=== PATIENT | female | born 1960 | race Caucasian/White ===

== ENCOUNTER → 2017-08-02 | Day surgery (SDC) | payer OTHER ==
[2017-07-27 09:27] VITALS: BMI 25.8
--- NOTE | 2017-08-02 15:40 | P.PCN ---
Preoperative Diagnosis: Diagnosis Right phrenic nerve paresis Past cryoablation about 3 months back 24 hours after cryoablation there was no movement of the diaphragm with deep breaths Patient brought in for sniff test and fluoroscopy of the diaphragms 1. There is still a difference in the diaphragmatic levels With deep inspiration and expiration there is mild movement of the right diaphragm which was not present before However in comparison to the left diaphragm there is residual right phrenic nerve paresis Impression Partial recovery of the phrenic nerve on the right side Plan Hold off on right-sided pulmonary vein isolation for the next 6 months and allow for complete recovery of the phrenic nerve Continue propafenone and Savaysa and metoprolol Follow-up in 6 months
== END | disposition home or self-care (01) ==
LOC: CATHEP 14:15
PROVIDERS: ATTEND Internal Medicine Clinical Cardiac Electrophysiology
DX: J98.6 Disorders of diaphragm (principal); I10 Essential (primary) hypertension; I48.0 Paroxysmal atrial fibrillation; Z79.01 Long term (current) use of anticoagulants; Z87.891 Personal history of nicotine dependence; Z79.899 Other long term (current) drug therapy
CPT/HCPCS: 76000

== ENCOUNTER → 2018-02-21 | Outpatient (CLI) | payer OTHER ==
--- NOTE | 2018-02-21 13:35 | FL ---
EXAMINATION TYPE: FL sniff test without CXR DATE OF EXAM: 02/21/2018 COMPARISON: Radiograph 04/23/2014 HISTORY: 57-year-old female chronic nerve paresis TECHNIQUE: Real-time fluoroscopy. Total fluoroscopy time: 56 seconds. Total images: 6. FINDINGS: There is slight asymmetric right hemidiaphragmatic elevation. During both normal, quite breathing as well as deep breathing, there is slightly decreased excursion of the right hemidiaphragm towards the end of inspiration. During sniffing maneuver, there is delayed and decreased excursion of the right hemidiaphragm though no paradoxical movement is seen. IMPRESSION: Partial right hemidiaphragmatic paresis with sluggish movement and decreased excursion.
== END | disposition home or self-care (01) ==
LOC: RADFLMAIN 09:33
PROVIDERS: ATTEND Internal Medicine Clinical Cardiac Electrophysiology
DX: J98.6 Disorders of diaphragm (principal)
CPT/HCPCS: 76000

== ENCOUNTER → 2018-09-08 | Outpatient (CLI) | payer OTHER ==
--- NOTE | 2018-09-08 09:17 | FL ---
EXAMINATION TYPE: FL sniff test without CXR DATE OF EXAM: 09/08/2018 COMPARISON: Prior fluoroscopic sniff test February 21, 2018. Prior chest x-ray April 23, 2014. HISTORY: History of atrial fibrillation with ablation in April 2017 with prior abnormal stiff test suggesting partial right diaphragmatic paralysis in January 2018 TECHNIQUE: Fluoroscopic sniff test. A total of 31 seconds of fluoroscopic time was utilized during pr ocedure. 14 spot images are saved to PACS. FINDINGS: During inspiration and expiration there is satisfactory downward movement of both right and left hemidiaphragms on inspiration and cranial movement of both hemidiaphragms on expiration. No par adoxical movement or paralysis is seen. Patient does have limited inspiratory volume and thus limited expiratory volume. IMPRESSION: As Above. No convincing evidence of hemidiaphragm paralysis on this study.
== END | disposition home or self-care (01) ==
LOC: RADFLWHC 08:22
PROVIDERS: ATTEND Internal Medicine Clinical Cardiac Electrophysiology
DX: I48.0 Paroxysmal atrial fibrillation (principal)
CPT/HCPCS: 76000

== ENCOUNTER → 2018-11-01 | Outpatient (CLI) | payer OTHER ==
[2018-11-01 10:31] LABS: HCT 43.9 % (34.0-46.0); HGB 13.8 gm/dL (11.4-16.0); MCH 32.3 pg (25.0-35.0); MCHC 31.4 g/dL (31.0-37.0); MCV 102.9 fL (80.0-100.0); Macrocytosis Slight; Mean Platelet Volume 6.9; Platelet Count 661 k/uL (150-450); RBC 4.27 m/uL (3.80-5.40); RDW 12.5 % (11.5-15.5); WBC 6.9 k/uL (3.8-10.6)
[2018-11-01 11:32] LABS: Potassium 6.3 mmol/L (3.5-5.1)
== END | disposition home or self-care (01) ==
LOC: LABPAT 09:29
PROVIDERS: ATTEND Internal Medicine Clinical Cardiac Electrophysiology
DX: Z01.812 Encounter for preprocedural laboratory examination (principal); I48.0 Paroxysmal atrial fibrillation
CPT/HCPCS: 36415; 80051; 82565; 82947; 84520; 85027

== ENCOUNTER → 2018-11-03 | Outpatient (CLI) | payer OTHER | END | disposition home or self-care (01) | LOC: LABWHC1 09:43 | PROVIDERS: ATTEND Nurse Practitioner Adult Health | DX: E87.6 Hypokalemia (principal) | CPT/HCPCS: 36415; 84132 ==

== ENCOUNTER 2018-11-14 06:49 | Day surgery (SDC) | payer OTHER ==
[2018-11-09 10:26] VITALS: BMI 27.4
[~2018-11-14 06:49] MED LIST: DEXAMETHASONE SOD PHOSPHATE 10 MG/ML 1 ML VIAL IV ONE; MIDAZOLAM 2 MG/2 ML VIAL IV PRN; ONDANSETRON 4 MG/2 ML VIAL IVP ONE; fentaNYL (PF) 50 MCG/ML 2 ML AMP IV PRN
[2018-11-14] MEDS ORDERED: NEOSTIGMINE 1 MG/ML 10 ML VIAL ONE (09:02)
[2018-11-14] MEDS ORDERED: fentaNYL (PF) 50 MCG/ML 2 ML AMP ONE (09:02)
[2018-11-14] MEDS ORDERED: diphenhydrAMINE 50 MG/ML 1 ML VIAL ONE (09:02)
[2018-11-14] MEDS ORDERED: SODIUM CHLORIDE 0.9% 1,000 ML IV ONE (09:02)
[2018-11-14] MEDS ORDERED: SUCCINYLCHOLINE CHLORIDE 100 MG/5 ML SYR IV ONE (09:02)
[2018-11-14] MEDS ORDERED: MIDAZOLAM 2 MG/2 ML VIAL ONE (09:02)
[2018-11-14] MEDS ORDERED: FUROSEMIDE 10 MG/ML 2 ML VIAL ONE (09:02)
[2018-11-14] MEDS ORDERED: GLYCOPYRROLATE 0.2 MG/ML 2 ML VIAL ONE (09:02)
[2018-11-14] MEDS ORDERED: PROTAMINE SULFATE 10 MG/ML 5 ML VIAL IV ONE (09:02)
[2018-11-14] MEDS ORDERED: ROCURONIUM BROMIDE 10 MG/ML 10 ML VIAL IV ONE (09:02)
[2018-11-14] MEDS ORDERED: PROPOFOL 10 MG/ML 20 ML VIAL IV ONE (09:02)
[2018-11-14] MEDS ORDERED: HEPARIN SOD,PORK IN 0.45% NACL 25,000 UNIT in 0.45% NACL 1 250ML.BAG IV ONE (09:55)
[2018-11-14] MEDS ORDERED: LIDOCAINE 1% INJ 10MG/ML (20 ML MDV) SQ ONE (09:56)
[2018-11-14] MEDS ORDERED: LACTATED RINGERS 1,000 ML IV ONE ×2 (10:05→15:04)
[2018-11-14] MEDS ORDERED: HEPARIN SODIUM (1,000 UNIT/ML) 1,000 UNIT in SODIUM CHLORIDE 0.9% 1,000 ML IRRIGATION ONE ×2 (10:41→14:40)
[2018-11-14] MEDS ORDERED: HYDROcodone/APAP 5-325MG 1 EACH TAB PO PRN (15:19)
[2018-11-14] MEDS ORDERED: ACETAMINOPHEN IV (For NPO) 1,000 MG in EMPTY BAG 1 BAG IVPB ONE (15:19)
--- NOTE | 2018-11-14 15:32 | P.PRLE ---
RE: Damaris Cunha Dear Bao Damaris underwent successful A. fib ablation with pulmonary vein isolation. Her right phrenic nerve was intact at the end of the procedure She also underwent a catheter based Maze procedure and she organized internally defibrillated atrial flutter and then underwent successful atrial flutter ablation to sinus rhythm She will continue ELIQUIS at this time and follow with you and Dr. Pena as before Thank you for entrusting me with the care of the patient Warm regards Sincerely Bernardo Fierro
--- NOTE | 2018-11-14 16:26 | PCN ---
PROCEDURE NOTE Damaris Cunha is a 58-year-old female with very frequent paroxysms of atrial fibrillation, who has failed propafenone as well as flecainide has symptomatic atrial fibrillation with RVR and shortness of breath. She has undergone a cryoablation in the last year, but she had right phrenic nerve injury and therefore the right-sided pulmonary veins were not ablated completely. She was brought back for an EP study and ablation using RF ablation. DESCRIPTION OF PROCEDURE: The patient is brought to the EP lab in a fasting state. Written informed consent was obtained prior to the procedure. The patient underwent general anesthesia, but without any paralytics initially. Once the course of the right phrenic nerve was carefully documented and tagged, paralytics were used. The right and left groins were prepped and draped as per protocol. 1% lidocaine was used for local anesthesia. Venous sheaths were placed in the right and left femoral veins and via these diagnostic mapping ablation catheters and intracardiac echo catheters were placed. The patient was in atrial fibrillation which is a relatively organized at the start of the study. Initially the right and left transseptal catheterization was performed. Intracardiac echocardiography was performed. There was no pericardial effusion. RV and LV size and function were normal. Left atrial appendage did not show any intracardiac mass or thrombus. Patient was on Eliquis. Successful transseptal catheterization was performed. RA pressure 12/7/10 mmHg, LA pressure 22/15/11 mmHg. This was performed under intracardiac echo guidance. Once a mapping catheter was placed in the left atrium, 3D electroanatomic mapping was performed. First a voltage map was made for the right and left pulmonary veins. The left-sided pulmonary veins were completely isolated. However, the right-sided veins were active. The anatomy of the right-sided veins was quite complex. There was a large right superior pulmonary vein, a small right middle pulmonary vein and complex large right inferior pulmonary vein, which immediately branched into 2 large branches, 1 heading anteriorly. The other heading posteriorly. First the phrenic nerve was stimulated and diaphragmatic contractions were documented. Thereafter, pacing was performed in the right pulmonary venous antrum anteriorly to document absence of any phrenic nerve stimulation in the antrum. These points were tagged and a wide tazlina antral isolation was performed outside this line towards the atrium. The wide tazlina antral isolation was completed and voltage mapping was once again performed. The vein was completely isolated (entrance block). However, the patient remained in the organized atrial fibrillation. Next linear ablation of the left atrial roof slightly anterior was performed and a complete anatomic line of block was made from the left superior pulmonary vein to the right superior pulmonary vein. This resulted in organization of atrial fibrillation with an eccentric activation in the coronary sinus poles, from the distal coronary sinus poles laterally to the seconds to the proximal coronary sinus poles more separately. Esophageal deflection had to be performed to complete the right pulmonary venous antral line. Barium was used and the esophagus was deflected. Temperature monitoring was performed in the esophagus. Thereafter, the mitral anulus was tagged and RF line of block was made from the left superior pulmonary vein to the mitral anulus. When this line was completed, there was an abrupt termination of the mitral anulus reentry and it converted to a rhythm that was consistent with typical right-sided atrial flutter. This mitral isthmus line was anatomically completed. Following that, the catheter was withdrawn into the right atrium. Heparin was stopped and mapping was performed in the cava tricuspid isthmus. 3D electro anatomic mapping of the cava tricuspid isthmus was performed and RF ablation was performed. The tachycardia terminated. A complete line of block was made. Following that with differential pacing, bidirectional block was demonstrated. The isthmus conduction time was greater than 163 milliseconds in either direction. Following that, in sinus rhythm, diagnostic EP study was performed. The MA interval is 176 milliseconds, QRS 86 milliseconds, QT 309 milliseconds. The baseline AH interval was 93 milliseconds, HV interval was 50 milliseconds. Patient was on flecainide 100 mg twice daily. Sinus node recovery times at 600, and 500 milliseconds were 1239 and 1239 millisecond respectively. Corresponding corrected sinus node recovery times were within normal limits. AV node Wenckebach block was 410 milliseconds. No delta waves. No slow pathway conduction. VA Wenckebach block greater than 600 milliseconds. Radiographic evaluation of the esophagus was performed after completion of the EP procedure. There was no evidence for esophageal ulceration or perforation. The barium was then carefully suctioned out of the esophagus. 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 The posterior pharynx was then cleaned and well suctioned to remove all the barium to avoid aspiration. Venous sheaths were removed. The patient was extubated. Heparin was reversed. The patient tolerated the procedure well without any acute complications. This was a long procedure that required multiple mapping procedures in the left atrium, 3D mapping. This was a stepwise ablation, first to the pulmonary veins, then linear ablation of left atrial roof, then the mitral isthmus and then subsequently right atrial 3D electro anatomic mapping and termination of typical atrial flutter on the right side. This was a long procedure lasting for over 4 hours. The patient tolerated the procedure well without any acute complications. PLAN: Continue Eliquis and continue flecainide for now and reduce the dose of flecainide in about 6 weeks and hopefully by 3 months, we will stop flecainide completely. [id number] / IJN: [id number] /
[2018-11-14] MEDS: LACTATED RINGERS 1,000 ML IV SCH (17:27)
[2018-11-14] MEDS ORDERED: ONDANSETRON 4 MG/2 ML VIAL IVP PRN (17:57)
[2018-11-14] MEDS: FLECAINIDE 50 MG TAB PO SCH (18:27)
[2018-11-14] MEDS ORDERED: FLECAINIDE 50 MG TAB PO STA (20:09)
[2018-11-14] MEDS ORDERED: METOPROLOL SUCCINATE (ER) 50 MG TAB.ER.24H PO STA (20:09)
[2018-11-14] MEDS: ATORVASTATIN 20 MG TAB PO SCH (21:24)
[2018-11-14] MEDS: APIXABAN 5 MG TAB PO SCH (21:24)
[2018-11-15] MEDS: ACETAMINOPHEN TAB 325 MG TAB PO PRN ×3 (01:17→21:01)
[2018-11-15] MEDS: FLECAINIDE 50 MG TAB PO SCH ×2 (05:01→16:32)
[2018-11-15] MEDS: LACTATED RINGERS 1,000 ML IV SCH (06:31)
[2018-11-15] MEDS: APIXABAN 5 MG TAB PO SCH ×2 (08:09→21:01)
[2018-11-15] MEDS: METOPROLOL SUCCINATE (ER) 100 MG TAB.ER.24H PO SCH (08:09)
[2018-11-15 08:11] LABS: Calcium 8.9 mg/dL (8.4-10.2); Potassium 4.2 mmol/L (3.5-5.1)
[2018-11-15] MEDS ORDERED: METOPROLOL SUCCINATE (ER) 50 MG TAB.ER.24H PO SCH (09:00)
[2018-11-15 09:14] LABS: T4, Free (Free Thyroxine) 1.01 ng/dL (0.78-2.19)
--- NOTE | 2018-11-15 10:32 | P.DS ---
Providers Attending physician: Bernardo Fierro Consults: 11/14/18 20:23 Consult Physician Routine Consulting Provider: Isaak Ramires Consult Reason/Comments: rec hyperkalemia Do you want consulting provider notified?: Yes, Notify in am Primary care physician: Stated None Hospital Course: Damaris is back in atrial fibrillation. This is not atrial tachycardia but atrial fibrillation since yesterday. She complains of being dizzy and she states that when she takes flecainide and metoprolol together she feels the same way and therefore she status the doses She is ambulating in the hallways but she is not completely steady Her vitals are stable at pressure 111/70 mmHg pulse rate between 86 216 beats a minute she's afebrile On examination her breath sounds are clear no rhonchi I hear pericardial rub over the precordium but she does not complain of any pleuritic chest pain Abdomen soft extremities are warm groins healing well Impression Recurrent paroxysmal atrial fibrillation with RVR, symptomatic and drug refractory Yesterday she underwent cryoablation of all 4 pulmonary veins with confirmed entrance block Thereafter she remained in atrial fibrillation but with linear ablation of the left atrial roof she organized into a mitral reentry Successful termination of mitral reentry Thereafter she remained in typical atrial flutter and was successfully ablated and went back in sinus rhythm Plan She will see nephrology today for her history of recurrent hyperkalemia the etiology of which is unclear to me Today her potassium is 4.2 Her TSH is 0.65 and her thyroid medication will need adjustment renal function is stable If by the evening she feels a lot better and is not dizzy she will go home today otherwise we will hold her on telemetry observation until tomorrow I explained to the patient and to the nurses She will continue with adequate ventilation there would be no changes in her medications If she has pleuritic chest discomfort then colchicine may be added Plan - Discharge Summary Discharge Rx Participant: No New Discharge Prescriptions: Continue Atorvastatin [Lipitor] 20 mg PO HS Metoprolol Succinate (ER) [Toprol XL] 50 mg PO DAILY Acetaminophen [Tylenol Extra Strength] 1,000 mg PO Q6HR PRN PRN Reason: Headache Flecainide Acetate 100 mg PO Q12H Apixaban [Eliquis] 5 mg PO BID Discharge Medication List Atorvastatin [Lipitor] 20 mg PO HS 05/25/17 [History] Metoprolol Succinate (ER) [Toprol XL] 50 mg PO DAILY 05/25/17 [History] Acetaminophen [Tylenol Extra Strength] 1,000 mg PO Q6HR PRN 05/27/17 [History] Apixaban [Eliquis] 5 mg PO BID 11/09/18 [History] Flecainide Acetate 100 mg PO Q12H 11/09/18 [History] Follow up Appointment(s)/Referral(s): Bernardo Fierro MD [STAFF PHYSICIAN] - 1 Week (Follow-up with Dr. Pena within 1-2 weeks Follow-up with Dr. Medley only as needed) Activity/Diet/Wound Care/Special Instructions: Post EP study - Ablation instructions 1. Keep access sites dry for 2 days. 2. No heavy lifting or straining for 2 days. 3. Avoid bending the hips repeatedly for 2 days. 4. You may go up and down stairs slowly Call if the following is noted 1. Bleeding, increasing swelling or pain at the access sites. 2. Increasing chest discomfort, especially upon taking a deep breath. 3. Increasing shortness of breath, at rest or with exertion. 4. Undue cough / phlegm 5. Difficulty or pain while swallowing. 6. Pain or change in color in the extremities. 7. Fever, chills, rigors. 8. Increasing headache or neurologic symptoms. 9. Dizziness, fainting, palpitations No change in medications Continue anticoagulation with ELIQUIS
--- NOTE | 2018-11-15 10:49 | P.NPCON ---
History of Present Illness - Reason for Consult hyperkalemia - History of Present Illness Reason for consultation: Hyperkalemia History of present illness: Patient is a 58-year-old female seen in consultation for hyperkalemia. Although patient's potassium is normal this admission, she's had episodes of hyperkalemia in the past. Potassium level on 11/01/2018 was 6.3 and repeat 2 days later was 5.6. This admission her potassium has been in the normal range. Patient is not acidotic. Blood sugars are controlled. She is not on any home medications that will significantly raise the potassium level. She does admit to eating green vegetables which are high in potassium. Admits to good urine output. No vomiting or diarrhea. Patient has history of atrial fibrillation and underwent ablation during this admission. Hemodynamically she stable. Heart rate this morning was a little high at 116 but is better now. She denies chest pain or shortness of breath. Overall feeling fine. She denies any prior history of kidney disease. GFR is currently at baseline. Vital signs are stable. General: The patient appeared well nourished and normally developed. HEENT: Head exam is unremarkable. Neck is without jugular venous distension. LUNGS: Lungs are clear to auscultation and percussion. Breath sounds decreased. HEART: Rate and Rhythm are regular. First and second heart sounds normal. No murmurs, rubs or gallops. ABDOMEN: Abdominal exam reveals normal bowel sounds. Non-tender and non-disten ded. No evidence of peritonitis. EXTREMITITES: No clubbing, cyanosis, or edema. Past Medical History Past Medical History: Hyperlipidemia Additional Past Medical History / Comment(s): see Dr Fierro H&P FOR CARDIAC HISTORY History of Any Multi-Drug Resistant Organisms: MRSA Date of last positivie culture/infection: TIP OF LT MIDDLE FINGER 2005 MDRO Source:: 2005 Past Surgical History: Section Additional Past Surgical History / Comment(s): tip of left middle finger removed for MRSA infection Past Anesthesia/Blood Transfusion Reactions: Motion Sickness Past Psychological History: Anxiety Smoking Status: Unknown if ever smoked Past Alcohol Use History: None Reported Additional Past Alcohol Use History / Comment(s): STARTED SMOKING AT AGE 18 QUIT APR 2018 SMOKED 1ppd, Past Drug Use History: None Reported - Past Family History Father Additional Family Medical History / Comment(s): AT 63 AAA Mother Family Medical History: No Reported History Additional Family Medical History / Comment(s): MOM IS 88 Medications and Allergies Home Medications Medication Instructions Recorded Confirmed Type Atorvastatin [Lipitor] 20 mg PO HS 05/25/17 11/14/18 History Metoprolol Succinate (ER) [Toprol 50 mg PO DAILY 05/25/17 11/09/18 History XL] Acetaminophen [Tylenol Extra 1,000 mg PO Q6HR PRN 05/27/17 11/09/18 History Strength] Apixaban [Eliquis] 5 mg PO BID 11/09/18 11/09/18 History Flecainide Acetate 100 mg PO Q12H 11/09/18 11/09/18 History Allergies Allergy/AdvReac Type Severity Reaction Status Date / Time codeine Allergy Itching Verified 11/09/18 09:51 Physical Exam Vitals: Vital Signs Temp Pulse Pulse Resp BP BP Pulse Ox 11/15/18 08:00 116 H 18 11/15/18 07:12 98.6 F 106 H 18 111/70 95 11/15/18 03:57 16 11/15/18 03:26 99.2 F 86 16 110/67 95 11/15/18 00:00 16 11/14/18 23:37 99.3 F 104 H 16 113/74 97 11/14/18 20:00 125 H 16 125/64 94 L 11/14/18 19:00 132 H 112/68 96 11/14/18 18:30 88 113/71 11/14/18 18:00 92 101/67 11/14/18 17:30 78 109/61 11/14/18 17:15 80 95/58 11/14/18 17:00 62 99/46 11/14/18 16:35 98.4 F 65 16 103/59 95 11/14/18 16:05 66 16 93/55 99 11/14/18 15:50 97 F L 64 16 112/59 100 Intake and Output 11/14/18 11/15/18 11/15/18 22:59 06:59 14:59 Intake Total 0 240 Output Total 1500 275 Balance -1500 -275 240 Intake: IV 0 Oral 240 Output: Urine 1500 275 Other: Voiding Method Toilet Toilet Toilet Results - Lab Results Most recent lab results Calcium 8.9 mg/dL (8.4-10.2) 11/15/18 07:44 11/15/18 07:44 Assessment and Plan Plan: Assessment: 1. History of hyperkalemia. This possibly may be due to hemolysis. Repeat potassium levels have been better. This admission her potassium is in the normal range. There is no evidence of metabolic acidosis or hyperglycemia. She is also not on any medications that would result potassium level. 2. Atrial fibrillation status post ablation. Plan: Monitor potassium level as an outpatient. If patient has hyperkalemia and it is not from a hemolyzed specimen, I will add low-dose diuretic. She will be given information on low potassium diet as well. Patient's currently in the observation unit. Potential discharge today. Thank you for the consultation. I will continue to follow the patient with you during her hospital stay.
[2018-11-15 19:50] VITALS: RESP 16
[2018-11-15] MEDS: ATORVASTATIN 20 MG TAB PO SCH (21:01)
[2018-11-16] MEDS: FLECAINIDE 50 MG TAB PO SCH (04:43)
[2018-11-16] MEDS: LACTATED RINGERS 1,000 ML IV SCH (04:45)
[2018-11-16] MEDS: APIXABAN 5 MG TAB PO SCH (07:47)
[2018-11-16] MEDS: METOPROLOL SUCCINATE (ER) 100 MG TAB.ER.24H PO SCH (07:47)
[2018-11-16 08:02] VITALS: BP 101/62; PULSE 106; TEMP 98.7
== END 2018-11-16 09:27 ==
LOC: CATHEP 06:49 → 1SOBS 15:00 → CATHEP 11-16 09:27
PROVIDERS: ATTEND Internal Medicine Clinical Cardiac Electrophysiology
DX: I48.0 Paroxysmal atrial fibrillation (principal); I10 Essential (primary) hypertension; E78.5 Hyperlipidemia, unspecified; Z72.0 Tobacco use; Z79.01 Long term (current) use of anticoagulants; Z79.899 Other long term (current) drug therapy; Z88.5 Allergy status to narcotic agent
CPT/HCPCS: 93662; 93613; 93656; 93657; 84439; 80048; 84443; 84132; C1769 ×4; C1894; C1730; C1759; C1893; C1732; J2405; J2001; J1644 ×2; J0131

== ENCOUNTER 2024-05-08 14:23 | Emergency (ER) | payer BC, OTHER ==
[2024-05-08 14:39] VITALS: BP 137/80; PULSE 75; RESP 16; TEMP 98.4
[2024-05-08 15:13] LABS: ALT 25 U/L (4-34); AST 29 U/L (14-36); African American GFR (CKD) >90 (>60 ml/min/1.73 sqM); Albumin 4.5 g/dL (3.5-5.0); Alkaline Phosphatase 54 U/L (38-126); Anion Gap 6 mmol/L; Blood Urea Nitrogen 17 mg/dL (7-17); Calcium 9.2 mg/dL (8.4-10.2); Carbon Dioxide 23 mmol/L (22-30); Chloride 109 mmol/L (98-107); Glucose 168 mg/dL (74-99); Non-African American GFR(CKD) >90 (>60 ml/min/1.73 sqM); Sodium 138 mmol/L (137-145); Total Bilirubin 0.6 mg/dL (0.2-1.3); Total Protein 7.2 g/dL (6.3-8.2)
[2024-05-08 15:21] LABS: Basophils % (A) 0 %; Eosinophils # (A) 0.3 k/uL (0-0.7); Eosinophils % (A) 3 %; HCT 40.6 % (34.0-46.0); HGB 13.2 gm/dL (11.4-16.0); Lymphocytes # (A) 3.6 k/uL (1.0-4.8); Lymphocytes % (A) 34 %; MCH 32.8 pg (25.0-35.0); MCHC 32.6 g/dL (31.0-37.0); MCV 100.9 fL (80.0-100.0); Mean Platelet Volume 7.4; Monocytes # (A) 0.7 k/uL (0-1.0); Monocytes % (A) 7 %; Neutrophils # (A) 5.8 k/uL (1.3-7.7); Neutrophils % (A) 55 %; Platelet Count 707 k/uL (150-450); RBC 4.02 m/uL (3.80-5.40); WBC 10.6 k/uL (3.8-10.6)
--- NOTE | 2024-05-08 15:46 | ED ---
General Adult HPI - General Chief complaint: Recheck/Abnormal Lab/Rx Stated complaint: ABN LABS Time Seen by Provider: 05/08/24 15:37 Source: patient Mode of arrival: ambulatory Limitations: no limitations - History of Present Illness Initial comments: 63-year-old female sent in by her PCP for elevated potassium. Patient had labs drawn on her PCP and was told today that her potassium was 6.4 and was advised report to the ER. Patient states that she has had a very mild frontal headache today but thought that it was just because she was not wearing her glasses. Otherwise she has no complaints. No head injury, nausea, vomiting, dizziness, chest pain, difficulty breathing. - Related Data Home Medications Medication Instructions Recorded Confirmed Atorvastatin [Lipitor] 20 mg PO HS 05/25/17 11/14/18 Metoprolol Succinate (ER) [Toprol 50 mg PO DAILY 05/25/17 11/09/18 XL] Acetaminophen [Tylenol Extra 1,000 mg PO Q6HR PRN 05/27/17 11/09/18 Strength] Apixaban [Eliquis] 5 mg PO BID 11/09/18 11/09/18 Flecainide Acetate [Tambocor] 100 mg PO Q12H 11/09/18 11/09/18 Allergies Allergy/AdvReac Type Severity Reaction Status Date / Time codeine Allergy Itching Verified 11/09/18 09:51 Review of Systems ROS Statement: Those systems with pertinent positive or pertinent negative responses have been documented in the HPI. ROS Other: All systems not noted in ROS Statement are negative. Past Medical History Past Medical History: Atrial Fibrillation, Hyperlipidemia, Hypertension Additional Past Medical History / Comment(s): see Dr Fierro H&P, History of Any Multi-Drug Resistant Organisms: MRSA Date of last positivie culture/infection: TIP OF LT MIDDLE FINGER 2005 MDRO Source:: 2005 Past Surgical History: Section Additional Past Surgical History / Comment(s): tip of left middle finger removed for MRSA infection Past Anesthesia/Blood Transfusion Reactions: No Reported Reaction Past Psychological History: Anxiety Past Alcohol Use History: None Reported Past Drug Use History: None Reported - Past Family History Father Additional Family Medical History / Comment(s): AT 63 AAA Mother Family Medical History: No Reported History Additional Family Medical History / Comment(s): MOM IS 88 General Exam Limitations: no limitations General appearance: alert, in no apparent distress Head exam: Present: atraumatic, normocephalic, normal inspection Eye exam: Present: normal appearance, EOMI Neck exam: Present: normal inspection. Absent: meningismus Respiratory exam: Absent: respiratory distress Cardiovascular Exam: Present: regular rate Neurological exam: Present: alert, oriented X3 Expanded Eye Response: (4) open spontaneously Motor Response: (6) obeys commands Verbal Response: (5) oriented [place] Total: 15 Psychiatric exam: Present: normal affect, normal mood Skin exam: Present: warm, dry Course Vital Signs 05/08/24 14:37 Temperature 98.4 F Pulse Rate 75 Respiratory 16 Rate Blood Pressure 137/80 O2 Sat by Pulse 98 Oximetry Medical Decision Making - Medical Decision Making Was pt. sent in by a medical professional or institution ([facility], PANEL BEATER, urgent care, hospital, or halfway...) When possible be specific @ -Sent by PCP Did you speak to anyone other than the patient for history (EMS, parent, family, police, friend...)? What history was obtained from this source @ -No Did you review nursing and triage notes (agree or disagree)? Why? @ -I reviewed and agree with nursing and triage notes Were old charts reviewed (outside hosp., previous admission, EMS record, old EKG, old radiological studies, urgent care reports/EKG's, halfway records)? Report findings @ -No old charts were reviewed Differential Diagnosis (chest pain, altered mental status, abdominal pain women, abdominal pain men, vaginal bleeding, weakness, fever, dyspnea, syncope, headache, dizziness, GI bleed, back pain, seizure, CVA, palpatations, mental health, musculoskeletal)? @ -Differential includes hemolyzed specimen, CKD, medication induced, this is not an all-inclusive list EKG interpreted by me (3pts min.). @ -As above X-rays interpreted by me (1pt min.). @ -None done CT interpreted by me (1pt min.). @ -None done U/S interpreted by me (1pt. min.). @ -None done What testing was considered but not performed or refused? (CT, X-rays, U/S, labs)? Why? @ -None What meds were considered but not given or refused? Why? @ -None Did you discuss the management of the patient with other professionals (professionals i.e. , PA, PANEL BEATER, lab, RT, psych nurse, social insurance adviser, cafeteria supervisor, teacher, chief supply chain officer, watch caser)? Give summary @ -No Was smoking cessation discussed for >3mins.? @ -No Was critical care preformed (if so, how long)? @ -No Were there social determinants of health that impacted care today? How? (Homelessness, low income, unemployed, alcoholism, drug addiction, transportation, low edu. Level, literacy, decrease access to med. care, fpc, rehab)? @ -No Was there de-escalation of care discussed even if they declined (Discuss DNR or withdrawal of care, Hospice)? DNR status @ -No What co-morbidities impacted this encounter? (DM, HTN, Smoking, COPD, CAD, Cancer, CVA, ARF, Chemo, Hep., AIDS, mental health diagnosis, sleep apnea, morbid obesity)? @ -None Was patient admitted / discharged? Hospital course, mention meds given and route, prescriptions, significant lab abnormalities, going to OR and other pertinent info. @ -63-year-old female sent in by her PCP for potassium of 6.4 after labs drawn in the office. Potassium here is 4.0. I assessed the patient in the waiting room, she states that she has a very mild headache which she attributes to not wearing her glasses today. I discussed the findings with her today. Patient would like to be discharged home. Follow-up with PCP. Report back to ER with any new or worsening symptoms. Discussed return parameters and answered all questions. Patient conveyed verbal understanding and agreed to the plan. My attending is Dr. Avitia Undiagnosed new problem with uncertain prognosis? @ -No Drug Therapy requiring intensive monitoring for toxicity (Heparin, Nitro, Insulin, Cardizem)? @ -No Were any procedures done? @ -No Diagnosis/symptom? @ -Laboratory redraw Acute, or Chronic, or Acute on Chronic? @ -Acute Uncomplicated (without systemic symptoms) or Complicated (systemic symptoms)? @ -Uncomplicated Side effects of treatment? @ -No Exacerbation, Progression, or Severe Exacerbation? @ -No Poses a threat to life or bodily function? How? (Chest pain, [place], [place], pneumonia, PE, COPD, DKA, ARF, appy, cholecystitis, CVA, Diverticulitis, Homicidal, Suicidal, threat to staff... and all critical care pts) @ -No - Lab Data Result diagrams: 05/08/24 14:44 05/08/24 14:44 Lab Results 05/08/24 05/08/24 Range/Units 14:44 14:44 WBC 10.6 (3.8-10.6) k/uL RBC 4.02 (3.80-5.40) m/uL Hgb 13.2 (11.4-16.0) gm/dL Hct 40.6 (34.0-46.0) % MCV 100.9 H (80.0-100.0) fL MCH 32.8 (25.0-35.0) pg MCHC 32.6 (31.0-37.0) g/dL RDW 12.0 (11.5-15.5) % Plt Count 707 H (150-450) k/uL MPV 7.4 Neutrophils % 55 % Lymphocytes % 34 % Monocytes % 7 % Eosinophils % 3 % Basophils % 0 % Neutrophils # 5.8 (1.3-7.7) k/uL Lymphocytes # 3.6 (1.0-4.8) k/uL Monocytes # 0.7 (0-1.0) k/uL Eosinophils # 0.3 (0-0.7) k/uL Basophils # 0.0 (0-0.2) k/uL Sodium 138 (137-145) mmol/L Potassium 4.0 (3.5-5.1) mmol/L Chloride 109 H (98-107) mmol/L Carbon Dioxide 23 (22-30) mmol/L Anion Gap 6 mmol/L BUN 17 (7-17) mg/dL Creatinine 0.71 (0.52-1.04) mg/dL Est GFR (CKD-EPI)AfAm >90 (>60 ml/min/1.73 sqM) Est GFR (CKD-EPI)NonAf >90 (>60 ml/min/1.73 sqM) Glucose 168 H (74-99) mg/dL Calcium 9.2 (8.4-10.2) mg/dL Total Bilirubin 0.6 (0.2-1.3) mg/dL AST 29 (14-36) U/L ALT 25 (4-34) U/L Alkaline Phosphatase 54 (38-126) U/L Total Protein 7.2 (6.3-8.2) g/dL Albumin 4.5 (3.5-5.0) g/dL Disposition Clinical Impression: Laboratory examination Disposition: HOME SELF-CARE Condition: Good Instructions (If sedation given, give patient instructions): Hyperkalemia (ED) Additional Instructions: Follow-up with your PCP. Report back to ER if needed Is patient prescribed a controlled substance at d/c from ED?: No Referrals: Bao Sotelo MD [Primary Care Provider] - 1-2 days Time of Disposition: 15:46
== END 2024-05-08 15:54 | disposition home or self-care (01) ==
LOC: EC 14:23
DX: Z00.00 Encounter for general adult medical examination without abnormal findings (principal); Z88.5 Allergy status to narcotic agent
CPT/HCPCS: 36415; 80053; 85025; 99283

== ENCOUNTER → 2024-11-06 | Outpatient (CLI) | payer BC ==
--- NOTE | 2024-11-06 11:20 | XR ---
EXAMINATION TYPE: XR chest 2V DATE OF EXAM: 11/06/2024 10:33 AM COMPARISON: Chest radiographs from 04/23/2014. 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 FINDINGS: Lungs/Pleura: There is flattening of the diaphragm with increased lucency of the lungs. No evidence o f pneumothorax, pleural effusion or focal consolidation. Pulmonary vascularity: Unremarkable. Heart/mediastinum: Cardiomediastinal silhouette is unremarkable. Musculoskeletal: No acute osseous pathology. IMPRESSION: 1. No acute cardiopulmonary disease process. 2. COPD changes. [facility], , 11/06/2024 11:17 AM
== END | disposition home or self-care (01) ==
LOC: RADXRMAIN 10:17
PROVIDERS: ATTEND Internal Medicine Hematology & Oncology
DX: D47.3 Essential (hemorrhagic) thrombocythemia (principal); J44.9 Chronic obstructive pulmonary disease, unspecified; E78.00 Pure hypercholesterolemia, unspecified; I48.91 Unspecified atrial fibrillation; Z71.3 Dietary counseling and surveillance
CPT/HCPCS: 71046